=== PATIENT | female | born 1930 | race Caucasian/White ===

== ENCOUNTER 2016-08-25 06:55 | Day surgery (SDC) | payer OTHER, BC ==
[~2016-08-25] VITALS: Ht 162.6 cm; Wt 68.0 kg
[~2016-08-25 06:55] MED LIST: ACID CONTROL150 MG PO; ADVAIR 100/501 DISK IH; ALUM-MAG HYDRO360 ML GT; ASPIR 8181 M1 PO; ATORVASTATIN CA40 MG PO; BENADRYL50 MG/ML IV; BISACODYL SUPP10 MG PR; BONIVA150 MG PO; CALCIUM +D & M1 EACH PO; CALCIUM 600 +1 EAC7 PO; CALCIUM600 M1 PO; CARDIZEM CD300 MG PO; CHILDREN'S160 MG/58 GT; CHLORHEXIDINE473 ML PO; COUMADIN,JANTOVE1 MG; COUMADIN1 MG PO; CYCLOBENZAPRINE10 MG PO; DILAUDID1 MG/ML IV; DITROPAN5 MG PO; DOCUSATE S60 MG/15 M GT; DUONEB 2.5-0.5 M3 ML AEROSOL; DURAGESIC25 MCG TD; ENDOCET 5-3251 EACH PO; FLEXERIL10 MG PO; FLONASE16 G1 BOTH NARES; FLUTICASONE PRO60 ML TP; HEPARIN SO5000 UNITS SC; HYDROCHLOROTHIA25 MG PO; HYDROCODON-ACE1 EAC7 PO; HYDROMORPHO1 MG/1 ML IV; IBANDRONATE SO150 MG PO; KLOR-CON M2020 MEQ PO; LASIX40 MG PO; LAXATIVE SUPPOS10 MG PR; LEVEMIR FL100 UNIT/1 SC; LEVOFLOXACIN750 MG PO; LIDOCAINE700 MG TD; LIDODERM 5% P1 PATCH TD; LIPITOR40 MG PO; LISINOPRIL40 MG PO; LOPRESSOR25 MG PO; LOPRESSOR50 MG GT; LORAZEPAM0.5 MG PO; LORTAB 5-325 M1 EACH PO; MAG-AL LIQUID30 ML PO; MAGNESIUM OXID400 MG PO; METAMUCIL PACKE1 PKT PO; METAMUCIL0.52 GM PO; MILK OF MAGNESI10 ML GT; MIRALAX17 GM PO; MOTRIN400 MG PO; NALOXONE HC1 MG/1 ML IV; NORMAL SALINE FL5 ML IV; NOVOLOG 10100 UNITS/ SC; NYSTATIN100000 UN1 PO; ONDANSETRON4 MG/2 ML IV; OXYBUTYNIN CHLOR5 M1 PO; OXYBUTYNIN CHLOR5 MG PO; OXYCODONE HCL10 MG GT; PANTOPRAZOLE SO40 MG PO; PREVACID SOLUTA30 MG GT; PRILOSEC40 MG PO; PROAIR HFA8.5 GM IH; PROMETHAZINE HC25 M1 GT; PROTONIX40 MG PO; RANITIDINE HCL150 MG PO; Remove Lidoderm Patch TD; SENEXON-S TABL1 EACH PO; SENNA176 MG/5 M GT; SEROQUEL12.5 MG PO; SERTRALINE HCL50 MG PO; SIMVASTATIN5 MG; SKELAXIN800 MG PO; SYMBICORT60 INHALA1 IH; TAZTIA XT300 M1 PO; TOPROL XL25 MG PO; TRAMADOL HCL50 MG PO; ULTRAM50 MG PO; XOPENEX1.25 MG/0. AEROSOL; ZANTAC150 MG PO; ZEASORB-AF70 G1 TP; ZOFRAN ODT4 MG GT; ZOFRAN4 MG PO; ZOLOFT50 M1 PO; ZOLOFT50 MG PO; ZYRTEC10 M2 PO; ZYRTEC10 M3 PO; [UNRECOGNIZED DRUG - CODE] PO
[2016-08-25 07:26] VITALS: BP 185/86
[2016-08-25 08:08] LABS: ANION GAP 12 MEQ/L (2-14); CHLORIDE 104 MEQ/L (99-109); SAMPLE HEMOLYSIS CHECK 0; SAMPLE ICTERIC CHECK 0; SAMPLE LIPEMIA CHECK 0; SODIUM 141 MEQ/L (136-147)
[2016-08-25 08:14] LABS: GFR ESTIMATE (CALCULATED) > 59 mL/min/; GLUCOSE 170 mg/dL (70-99); UREA NITROGEN (BUN) 9 mg/dL (9-23)
[2016-08-25 08:44] LABS: METH RESISTANT S AUREUS PCR NEGATIVE (NEGATIVE)
[2016-08-25 08:45] LABS: PROBE CHECK PASS; SPECIMEN PROCESSING CONTROL PASS
[2016-08-25] MEDS ORDERED: PERCOCET 5/31 TABLET PO (09:54)
[2016-08-25 10:55] VITALS: BP 191/77
[2016-08-25 11:25] VITALS: BP 189/65
== END 2016-08-25 11:44 | disposition home or self-care (01) ==
LOC: SDC 06:55
PROVIDERS: Surgery
PROC: 0Y6T0Z1 Detachment at Right 3rd Toe, High, Open Approach (ICD-10-PCS; principal; 2016-08-25)
DX: I70.261 Atherosclerosis of native arteries of extremities with gangrene, right leg (principal); E11.52 Type 2 diabetes mellitus with diabetic peripheral angiopathy with gangrene; Z98.890 Other specified postprocedural states; I10 Essential (primary) hypertension; M19.90 Unspecified osteoarthritis, unspecified site; I87.2 Venous insufficiency (chronic) (peripheral); I65.23 Occlusion and stenosis of bilateral carotid arteries; Z85.72 Personal history of non-Hodgkin lymphomas; Z86.711 Personal history of pulmonary embolism; Z88.1 Allergy status to other antibiotic agents; Z82.49 Family history of ischemic heart disease and other diseases of the circulatory system; Z83.49 Family history of other endocrine, nutritional and metabolic diseases
CPT/HCPCS: 80048; 87641; 88305; 88311; S0020

== ENCOUNTER → 2017-04-27 | Outpatient (CLI) | payer MEDICARE, BC ==
[~2017-04-27] MED LIST changes: +PERCOCET 5/31 TABLET PO
== END | disposition home or self-care (01) ==
LOC: CDC 09:47
DX: Z01.810 Encounter for preprocedural cardiovascular examination (principal); I49.1 Atrial premature depolarization; I44.4 Left anterior fascicular block; I51.7 Cardiomegaly
CPT/HCPCS: 93000

== ENCOUNTER → 2018-02-02 | Outpatient (CLI) | payer OTHER, BC | END | disposition home or self-care (01) | DX: R13.10 Dysphagia, unspecified (principal); K21.9 Gastro-esophageal reflux disease without esophagitis | CPT/HCPCS: 92611 GN; G8996 GN; G8997 GN; G8998 GN ==